=== PATIENT | female | born 1995 | race Caucasian/White ===

== ENCOUNTER 2018-09-02 09:29 | Outpatient (REF) | payer OTHER, SELFPAY ==
--- NOTE | 2018-09-02 08:30 | PAPFT_PTH ---
PATIENT: China Mahmood LOC: [facility] U#:[id number] AGE/SX: 22/F ROOM: RE09/02/[address]: FEI Solano : 1995 BED: DIS: 09/02/2018 SPEC #: [id number] RECD: 09/02/18 13:04 STATUS: ARAVIND REBrandon #: [id number] TOBY: 09/02/18 08:[address]: Glendy Painter DEPT: [facility] Cytology RECD BY: Etelvina Renee ENTERED: 09/02/18 13:04 SP TYPE: PAPFT OTHR DR: Joy Phan APRN Tissues: 1 - CX/ENDOCX FOR PAP SMEARS Procedures: PAP THIN PREP/[facility] Screening Comments: [id number]
[2018-09-05 13:38] LABS: Chlamydia Result Negative; GC Result Negative; Specimen Description CERVIX
== END 2018-09-02 09:49 ==
LOC: LBN 09:29
PROVIDERS: Visit Provider Nurse Practitioner Family
DX: Z11.3 Encounter for screening for infections with a predominantly sexual mode of transmission (principal); Z12.4 Encounter for screening for malignant neoplasm of cervix
CPT/HCPCS: 87491; 87591; 88142

== ENCOUNTER 2019-09-21 10:19 | Outpatient (REF) | payer OTHER, SELFPAY ==
--- NOTE | 2019-09-21 10:00 | PAPFT_PTH ---
PATIENT: China Mahmood LOC: N U#:[id number] AGE/SX: 23/F ROOM: RE09/21/[address]: FEI Solano : 1995 BED: DIS: 09/21/2019 SPEC #: [id number] RECD: 09/21/19 13:12 STATUS: ARAVIND REQ #: [id number] TOBY: 09/21/19 10:[address]: Glendy Painter DEPT: [facility] Cytology RECD BY: Etelvina Renee ENTERED: 09/21/19 13:12 SP TYPE: PAPFT OTHR DR: Joy Phan APRN Tissues: 1 - CX/ENDOCX FOR PAP SMEARS Procedures: PAP THIN PREP/[facility] Screening Comments: [id number]
[2019-09-22 14:20] LABS: Chlamydia Result Negative (Negative); GC Result Negative (Negative)
== END 2019-09-21 10:39 ==
LOC: LBN 10:19
PROVIDERS: Visit Provider Nurse Practitioner Family
DX: Z11.3 Encounter for screening for infections with a predominantly sexual mode of transmission (principal); Z12.4 Encounter for screening for malignant neoplasm of cervix
CPT/HCPCS: 87491; 87591; 88142

== ENCOUNTER 2019-11-28 12:27 | Outpatient (REF) | payer OTHER, SELFPAY ==
--- NOTE | 2019-11-28 11:35 | PAPFT_PTH ---
PATIENT: China Mahmood LOC: [facility] U#:[id number] AGE/SX: 23/F ROOM: RE11/28/[address]: Leandro Edgar MD : 1995 BED: DIS: 11/28/2019 SPEC #: [id number] RECD: 11/28/19 13:07 STATUS: ARAVIND REBrandon #: [id number] TOBY: 11/28/19 11:[address]: Leandro Edgar DEPT: [facility] Cytology RECD BY: Etelvina Renee ENTERED: 11/28/19 13:07 SP TYPE: PAPFT OTHR DR: Joy Phan APRN Tissues: 1 - CX/ENDOCX FOR PAP SMEARS Procedures: PAP THIN PREP/[facility] Screening Comments: [id number]
== END 2019-11-28 12:47 ==
LOC: LBN 12:27
PROVIDERS: Visit Provider Obstetrics & Gynecology
DX: R10.9 Unspecified abdominal pain (principal); L29.2 Pruritus vulvae; Z12.4 Encounter for screening for malignant neoplasm of cervix; R87.612 Low grade squamous intraepithelial lesion on cytologic smear of cervix (LGSIL)
CPT/HCPCS: 88142; 87086; 87480; 87510; 87660

== ENCOUNTER 2019-12-08 12:54 | Outpatient (REF) | payer OTHER, SELFPAY ==
--- NOTE | 2019-12-08 11:40 | CER_PTH ---
PATIENT: China Mahmood LOC: [facility] U#:[id number] AGE/SX: 24/F ROOM: RE12/08/[address]: Leandro Edgar MD : 1995 BED: DIS: 12/08/2019 SPEC #: [id number] RECD: 12/08/19 13:08 STATUS: ARAVIND REBrandon #: [id number] TOBY: 12/08/19 11:[address]: Leandro Edgar DEPT: Surgical Specimen RECD BY: Etelvina Renee ENTERED: 12/08/19 13:10 SP TYPE: CER OTHR DR: Joy Phan APRN Tissues: 1 - CERVICAL BIOPSY 2 - CERVICAL BIOPSY 3 - ENDOCERVICAL BX/CURRETTE Procedures: GROSS AND MICRO LEVEL 4 Comments: [id number] (SPEC #3 - TISSUE DID NOT SURVIVE PROCESSING)
== END 2019-12-08 13:14 ==
LOC: LBN 12:54
PROVIDERS: Visit Provider Obstetrics & Gynecology
DX: N87.0 Mild cervical dysplasia (principal); N72 Inflammatory disease of cervix uteri; Z87.42 Personal history of other diseases of the female genital tract
CPT/HCPCS: 88305

== ENCOUNTER 2020-09-06 02:11 | Outpatient (CLI) | payer OTHER, SELFPAY ==
[2020-09-07 17:06] LABS: COVID-19 RT-PCR Result NEGATIVE (Negative)
== END 2020-09-06 02:31 ==
PROVIDERS: Visit Provider Obstetrics & Gynecology
DX: Z11.59 Encounter for screening for other viral diseases (principal)
CPT/HCPCS: U0003

== ENCOUNTER 2020-12-20 18:22 | Outpatient (REF) | payer OTHER, SELFPAY ==
[2020-12-23 15:50] LABS: Chlamydia Result Negative (Negative); GC Result Negative (Negative)
== END 2020-12-20 18:23 | disposition home or self-care (01) ==
LOC: LBN 18:22
PROVIDERS: Visit Provider Nurse Practitioner Family
DX: Z11.3 Encounter for screening for infections with a predominantly sexual mode of transmission (principal)
CPT/HCPCS: 87491; 87591

== ENCOUNTER 2020-12-23 09:49 | Outpatient (CLI) | payer OTHER, SELFPAY ==
[2020-12-24 14:30] LABS: COVID-19 RT-PCR UVMMC Result Positive (Negative)
== END 2020-12-23 09:50 | disposition home or self-care (01) ==
DX: Z20.822 Contact with and (suspected) exposure to COVID-19 (principal)
CPT/HCPCS: U0003

== ENCOUNTER 2021-02-24 11:34 | Outpatient (REF) | payer OTHER, SELFPAY ==
--- NOTE | 2021-02-24 11:00 | PAPFT_PTH ---
PATIENT: China Mahmood LOC: [facility] U#:[id number] AGE/SX: 25/F ROOM: RE02/24/[address]: FEI Solano : 1995 BED: DIS: 02/24/2021 SPEC #: [id number] RECD: 02/24/21 14:11 STATUS: ARAVIND REBrandon #: [id number] TOBY: 02/24/21 11:[address]: Glendy Painter DEPT: [facility] Cytology RECD BY: Liza Gould ENTERED: 02/24/21 14:12 SP TYPE: PAPFT OTHR DR: Joy Phan APRN Tissues: 1 - CX/ENDOCX FOR PAP SMEARS Procedures: PAP THIN PREP/[facility] Screening Comments: [id number]
== END 2021-02-24 11:35 | disposition home or self-care (01) ==
LOC: LBN 11:34
PROVIDERS: Visit Provider Nurse Practitioner Family
DX: Z12.4 Encounter for screening for malignant neoplasm of cervix (principal); Z87.410 Personal history of cervical dysplasia
CPT/HCPCS: 88142

== ENCOUNTER 2021-05-26 16:35 | Outpatient (REF) | payer OTHER, SELFPAY ==
[2021-05-28 14:50] LABS: Chlamydia Result Negative (Negative); GC Result Negative (Negative)
== END 2021-05-26 16:36 | disposition home or self-care (01) ==
LOC: LBN 16:35
PROVIDERS: Visit Provider Obstetrics & Gynecology
DX: Z11.3 Encounter for screening for infections with a predominantly sexual mode of transmission (principal)
CPT/HCPCS: 87491; 87591; 87480; 87510; 87660

== ENCOUNTER 2022-03-09 09:13 | Outpatient (REF) | payer OTHER, SELFPAY ==
--- NOTE | 2022-03-09 08:30 | PAPFT_PTH ---
PATIENT: China Mahmood LOC: [facility] U#:[id number] AGE/SX: 26/F ROOM: RE03/09/[address]: FEI Solano : 1995 BED: DIS: 03/09/2022 SPEC #: [id number] RECD: 03/09/22 12:50 STATUS: ARAVIND REBrandon #: [id number] TOBY: 03/09/22 08:[address]: Glendy Painter DEPT: [facility] Cytology RECD BY: Etelvina Renee ENTERED: 03/09/22 12:50 SP TYPE: PAPFT SONY DR: Joy Phan APRN Tissues: 1 - CX/ENDOCX FOR PAP SMEARS Procedures: PAP THIN PREP/[facility] Screening Comments: [id number]
[2022-03-10 14:45] LABS: Chlamydia Result Negative (Negative); GC Result Negative (Negative)
== END 2022-03-09 09:14 | disposition home or self-care (01) ==
LOC: LBN 09:13
PROVIDERS: Visit Provider Nurse Practitioner Family
DX: Z11.3 Encounter for screening for infections with a predominantly sexual mode of transmission (principal); Z12.4 Encounter for screening for malignant neoplasm of cervix
CPT/HCPCS: 87491; 87591; 88142

== ENCOUNTER 2023-03-15 10:40 | Outpatient (REF) | payer OTHER, SELFPAY ==
--- NOTE | 2023-03-15 09:45 | PAPFT_PTH ---
PATIENT: China Mahmood LOC: [facility] U#:[id number] AGE/SX: 27/F ROOM: RE03/15/[address]: Kylah Mukherjee NP : 1995 BED: DIS: 03/15/2023 SPEC #: [id number] RECD: 03/15/23 13:07 STATUS: ARAVIND STONE #: [id number] TOBY: 03/15/23 09:[address]: Kylah Mukherjee NP DEPT: [facility] Cytology RECD BY: Etelvina Renee ENTERED: 03/15/23 13:07 SP TYPE: PAPFT OTHR DR: Laurie Tenorio NP Tissues: 1 - CX/ENDOCX FOR PAP SMEARS Procedures: PAP THIN PREP/[facility] Screening HPV DNA PROBE Comments: [id number] (CHLAMYDIA/GC)
[2023-03-16 14:19] LABS: Chlamydia Result Negative (Negative); GC Result Negative (Negative)
== END 2023-03-15 10:41 | disposition home or self-care (01) ==
LOC: LBN 10:40
PROVIDERS: PCP Nurse Practitioner Family; Visit Provider Nurse Practitioner Women's Health
DX: Z11.3 Encounter for screening for infections with a predominantly sexual mode of transmission (principal); Z12.4 Encounter for screening for malignant neoplasm of cervix; R87.610 Atypical squamous cells of undetermined significance on cytologic smear of cervix (ASC-US); Z11.51 Encounter for screening for human papillomavirus (HPV); Z87.410 Personal history of cervical dysplasia
CPT/HCPCS: 87491; 87591; 88142; 87624

== ENCOUNTER 2024-03-21 13:29 | Outpatient (REF) | payer OTHER, SELFPAY ==
--- NOTE | 2024-03-21 12:00 | PAPFT_PTH ---
PATIENT: China Mahmood LOC: [facility] U#:[id number] AGE/SX: 28/F ROOM: RE03/21/[address]: Suma Holley MD : 1995 BED: DIS: 03/21/2024 SPEC #: [id number] RECD: 03/21/24 13:46 STATUS: ARAVIND REBrandon #: [id number] TOBY: 03/21/24 12:[address]: Suma Holley DEPT: [facility] Cytology RECD BY: Etelvina Renee ENTERED: 03/21/24 13:47 SP TYPE: PAPFT OTHR DR: Laurie Tenorio, ORDERLIES TEACHER Tissues: 1 - CX/ENDOCX FOR PAP SMEARS Procedures: PAP THIN PREP/[facility] Screening HPV DNA PROBE Comments: [id number] (CHLAMYDIA/GC)
[2024-03-22 12:26] LABS: Chlamydia Result Negative (Negative); GC Result Negative (Negative)
== END 2024-03-21 13:30 | disposition home or self-care (01) ==
LOC: LBN 13:29
PROVIDERS: PCP Nurse Practitioner Family; Visit Provider Obstetrics & Gynecology
DX: Z11.3 Encounter for screening for infections with a predominantly sexual mode of transmission (principal); Z12.4 Encounter for screening for malignant neoplasm of cervix; Z11.51 Encounter for screening for human papillomavirus (HPV); Z87.410 Personal history of cervical dysplasia
CPT/HCPCS: 87491; 87591; 88142; 87624

== ENCOUNTER 2024-08-09 08:31 | Outpatient (REF) | payer OTHER, SELFPAY ==
--- NOTE | 2024-08-09 07:38 | SKI_PTH ---
PATIENT: China Mahmood LOC: [facility] U#:[id number] AGE/SX: 28/F ROOM: RE08/09/[address]: Gianfranco Irwin MD : 1995 BED: DIS: 08/09/2024 SPEC #: [id number] RECD: 08/09/24 12:28 STATUS: ARAVIND REBrandon #: [id number] TOBY: 08/09/24 07:[address]: Gianfranco Irwin DEPT: Surgical Specimen RECD BY: Etelvina Renee ENTERED: 08/09/24 12:30 SP TYPE: NICOLLE CARDOZA DR: Laurie Tenorio, MABEL Tissues: 1 - SKIN BIOPSY(SHAVE/PUNCH) Procedures: SKIN LEVEL 4 Comments: [id number]
== END 2024-08-09 08:32 | disposition home or self-care (01) ==
LOC: LBN 08:31
PROVIDERS: PCP Nurse Practitioner Family; Visit Provider Otolaryngology
DX: L98.9 Disorder of the skin and subcutaneous tissue, unspecified (principal)
CPT/HCPCS: 88305

== ENCOUNTER 2024-12-12 08:25 | Outpatient (CLI) | payer OTHER, SELFPAY ==
[2024-12-12 12:17] LABS: HCT 40.7 % (36.0-46.0); HGB 13.2 g/dL (11.2-15.7); MCH 29.2 pg (27.0-33.0); MCHC 32.4 % (32.0-36.0); MCV 90 fL (80-95); Platelet Count 335 10^3/uL (130-400); RBC 4.52 10^6/uL (3.93-5.22); RDW 12.5 % (11.7-14.6); RDW-SD 41.4 fL; WBC 9.97 10^3/uL (4.4-10.8)
[2024-12-12 13:02] LABS: ALT 21 U/L (14-59); AST 19 U/L (15-37); Albumin 3.5 g/dL (3.4-5.0); Alkaline Phosphatase 49 U/L (46-116); Anion Gap 8.9 mmol/L (3-11); BUN 15 mg/dL (7-18); Bilirubin, Total 0.5 mg/dL (0.2-1.0); CO2 28.1 mmol/L (21.0-32.0); CREATININE 0.9 mg/dL (0.55-1.02); Calcium 9.8 mg/dL (8.5-10.1); Calculated LDL 134 mg/dL (<100); Chloride 105 mmol/L (98-107); Cholesterol 241 mg/dL (<200); Glucose 99 mg/dL (74-106); HDL Cholesterol 92 mg/dL (>or=50); Potassium 3.9 mmol/L (3.5-5.1); Sodium 142 mmol/L (136-145); Total Protein 7.4 g/dL (6.4-8.2); Triglyceride 77 mg/dL (<150)
== END 2024-12-12 08:26 | disposition home or self-care (01) ==
LOC: LOS 08:26
PROVIDERS: PCP Nurse Practitioner Family; Referring Provider Nurse Practitioner Family; Visit Provider Nurse Practitioner Family
DX: Z00.00 Encounter for general adult medical examination without abnormal findings (principal); F41.9 Anxiety disorder, unspecified; F32.9 Major depressive disorder, single episode, unspecified
CPT/HCPCS: 36415; 80053; 80061; 85027

== ENCOUNTER 2025-03-27 11:55 | Outpatient (REF) | payer OTHER, SELFPAY ==
--- NOTE | 2025-03-27 11:55 | PAPFT_PTH ---
PATIENT: China Mahmood LOC: [facility] U#:[id number] AGE/SX: 29/F ROOM: RE03/27/[address]: Suma Holley MD : 1995 BED: DIS: 03/27/2025 SPEC #: [id number] RECD: 03/27/25 12:49 STATUS: ARAVIND REBrandon #: [id number] TOBY: 03/27/25 11:[address]: Suma Holley DEPT: [facility] Cytology RECD BY: Etelvina Renee ENTERED: 03/27/25 12:49 SP TYPE: PAPFT OTHR DR: Laurie Tenorio, CONTACT CENTER DIRECTOR Tissues: 1 - CX/ENDOCX FOR PAP SMEARS Procedures: PAP THIN PREP/[facility] Screening HPV DNA PROBE Comments: [id number] (HPV 16 & 18/45) (CHLAMYDIA/GC)
[2025-03-28 12:25] LABS: Chlamydia Result Negative (Negative); GC Result Negative (Negative)
== END 2025-03-27 11:56 | disposition home or self-care (01) ==
LOC: LBN 11:55
PROVIDERS: PCP Nurse Practitioner Family; Visit Provider Obstetrics & Gynecology
DX: Z12.4 Encounter for screening for malignant neoplasm of cervix (principal)
CPT/HCPCS: 87491; 87591; 88142; 87624

== ENCOUNTER 2025-05-05 16:44 | Emergency (ER) | payer OTHER, SELFPAY ==
[2025-05-05 16:45] VITALS: BP 129/73; PULSE 107; RESP 18; TEMP 36.6; O2SAT 98
[2025-05-05 16:49] VITALS: BP 129/73; PULSE 107; RESP 18; TEMP 36.6; O2SAT 98
[2025-05-05 17:00] LABS: Glucose Negative (Negative)
[2025-05-05 17:10] LABS: C & S Indicated? Yes; RBC 0-2 HPF (0-2)
[2025-05-05] MEDS: MacroBID 100 MG CAP, 2 CAPS/BTL PO (17:23)
--- NOTE | 2025-05-05 17:25 | ED.GENADUL_ITS ---
Discharge Plan Disposition Patient Disposition: Home Discharge Details Clinical Impression: UTI (urinary tract infection) Primary Care Provider: Laurie Tenorio ED Provider: Rolanda Wilson Home Meds and New Rx's Prescriptions: New nitrofurantoin monohyd/m-cryst [Macrobid] 100 mg capsule 100 mg PO Q12H 4 Days Qty: 8 0RF Rx Instructions: must administer with a meal/food No Action multivitamin [Daily Multi-Vitamin] Tablet 1 tab PO DAILY etonogestrel-ethinyl estradiol [NuvaRing] 0.12-0.015 mg/24 hr ring 1 vag ring vaginal q month Qty: 9 4RF citalopram 10 mg tablet 10 mg PO DAILY Qty: 90 3RF triamcinolone acetonide 0.1 % cream 1 applic topical BID PRN Rx Instructions: Apply to affected area twice daily ibuprofen 200 mg tablet 200 mg PO Q6H PRN Discharge Instructions Instructions: Urinary Tract Infection, Adult ED Additional Instructions: Please call your primary care provider if you are not feeling significantly better by Wednesday. You are being prescribed antibiotic called nitrofurantoin/Macrobid to treat UTI. Please take the full course as prescribed. A urine culture is being performed, we will let you know if any changes to treatment need to be made. Stay well-hydrated, drinking plenty of fluids throughout the day. Return to emergency care if you develop new fevers, abdominal pains, inability to urinate, nausea/vomiting, or if you are very worried and need to be rechecked again immediately. Referrals: Laurie Tenorio NP [Primary Care Provider, Medicine] Discharge Data Discharge Date/Time-TO BE ENTERED AT DEPARTURE: 05/05/25 17:24 HPI General Date/Time Provider Initiated Documentation: 05/05/25 17:07 . HPI Narrative: China is a 29-year-old female who presents to the ED for evaluation of urinary complaints, suspects UTI. Reports a few days of tingling during urination, progressing to pain with urination. Also reports suprapubic pressure and increased urinary frequency/urgency. She does have some mild itching, but says that this is not accompanied by any unusual discharge. No blood in urine, but did notice some redness on toilet paper. Denies associated fever/chills, nausea/vomiting, change in bowel movements, other abdominal pain, lower back pain. No known trauma, recent antibiotic use, or allergies. No significant gynecologic history, history of STDs, or new sexual partners. Have regular menstrual cycles, uses NuvaRing. PCP at [facility]. Related Data Home Medications ?Medication ?Instructions ?Recorded ?Confirmed multivitamin (Daily Multi-Vitamin 1 tab PO DAILY 11/2805/05/25 tablet) ibuprofen 200 mg tablet 200 mg PO Q6H PRN 11/03/23 0 05/05/25 triamcinolone acetonide 0.1 % 1 applic topical BID PRN 05/03/24 05/05/25 topical cream citalopram 10 mg tablet 10 mg PO DAILY #90 tabs 06/0405/05/25 etonogestrel 0.12 mg-ethinyl 1 vag ring vaginal q neyda h #9 ea 03/27/25 05/05/25 estradiol 0.015 mg/24 hr vaginal ring (NuvaRing) nitrofurantoin 100 mg PO Q12H 4 days #8 cap s 05/05/25 monohydrate/macrocrystals 100 mg capsule (Macrobid) Previous Rx's ?Medication ?Instructions ?Recorded citalopram 10 mg tablet 10 mg PO DAILY #90 tabs 06/04 etonogestrel 0.12 mg-ethinyl 1 vag ring vaginal q neyda h #9 ea 03/27/25 estradiol 0.015 mg/24 hr vaginal ring (NuvaRing) nitrofurantoin 100 mg PO Q12H 4 days #8 cap s 05/05/25 monohydrate/macrocrystals 100 mg capsule (Macrobid) Allergies Allergy/AdvReac Type Severity Reaction Status Date / Time No Known Allergies Allergy Verified 05/05/25 16:48 General Stated Complaint: Urinary ERIC: 3 Exam Narrative Exam Narrative: General Appearance: Alert, oriented, well-appearing. Vital signs: Within normal limits. HEENT: Moist mucous membranes. Gastrointestinal: Soft, nondistended, nontender abdomen. No CVA tenderness. Skin: Warm and dry, no rash. Psychiatric: Normal. Course Vital Signs Vital signs: Vital Signs Temperature 36.6 C 05/05/25 16:45 Pulse 107 H 05/05/25 16:45 Respiratory Rate 18 05/05/25 16:45 Blood Pressure 129/73 05/05/25 16:45 Pulse Oximetry 98 05/05/25 16:45 Temperature 36.6 C 05/05/25 16:49 Pulse 107 H 05/05/25 16:49 Respiratory Rate 18 05/05/25 16:49 Blood Pressure 129/73 05/05/25 16:49 Blood Pressure Position Sitting 05/05/25 16:49 Pulse Oximetry 98 05/05/25 16:49 Pain Level 1 05/05/25 16:54 Lab/Test Results Lab/Test Results: 05/05/25 16:48 Urine - Reflex from Ua Urine Culture - Pending Laboratory Tests Range/Units 05/05/25 16:48 Urine Color (Yellow) Yellow Urine Clarity (Clear) Clear Urine pH (5-8) 6.5 Ur Specific [place] (1.005-1.025) 1.010 Urine Protein (Neg-Trace) mg/dL Negative Urine Ketones (Negative) mg/dL Negative Urine Blood (Negative) Small H Urine Nitrite (Negative) Negative Urine Bilirubin (Negative) Negative Urine Urobilinogen (Up to 0.2) mg/dL 0.2 Ur Leukocyte Esterase (Negative) Trace H Urine RBC (0-2) HPF 0-2 Urine WBC (0-5) HPF 10-20 H Ur Epithelial Cells (Negative) HPF Rare Urine Crystals (Negative) HPF Negative Urine Bacteria (Negative) HPF Few Urine Casts (Negative) LPF Negative Urine Mucus (Negative) Negative Ur Culture Indicated? Yes Urine Glucose (Negative) mg/dL Negative POC- Test(urine) Negative Medical Decision Making Initial Assessment: 29-year-old female presenting with dysuria, pressure, increased frequency, and mild itching. Suspected UTI. History and presentation consistent with UTI. No red flags concerning for pyelonephritis, serious extension of infection, or obstruction. I independently interpreted the following tests: -UA consistent with UTI, with 10-20 white blood cells and positive leuks - test negative. Final Assessment: Well-appearing patient with UTI. First dose of Macrobid administered. Prescription sent to pharmacy. Clinical Impression: - UTI Disposition: - Discharge: Home. Reviewed discharge instructions with patient, acutely and use of antibiotics, symptomatic management, and red flags indicate need for return to emergency care. Monitor for new symptoms (fever, abdominal pain, backache, nausea, vomiting, inability to urinate). Return to ED if symptoms arise. Follow-Up: Follow up with primary care provider if symptoms persist or worsen by Wednesday. Patient Education: Advised to wear breathable underwear, practice good hygiene, and stay hydrated. Monitor for signs of yeast infection. Patient consented to the use of [facility] PFSH All Active Problems (Updated 05/05/25 @ 17:18 by Rolanda Angulo) UTI (urinary tract infection) (Acute) Skin lesions, generalized (Acute) right fore head in hair line. Had it for as long as she can remember. Skin nodule of toe of right foot (Acute) Plantar surface 3rd toe, right foot Depression (Chronic) 2018 - Recently - therapist in [place] Lumbar spine scoliosis (Acute) Anxiety (Acute 05/31/18) Acne vulgaris (Acute 08/18/17) Medical History (Updated 05/05/25 @ 17:18 by Rolanda Angulo) History of abnormal cervical Pap smear Memory changes (05/31/18) Family history of colitis (09/13/15) Surgical History Tooth extraction Family History Mother Personal history of malignant neoplasm CERVICAL Father No problems noted. Maternal Grandmother , AGE 50 Cervical cancer Paternal Grandfather Alcohol abuse Asthma Depression Cancer Social History Smoking/Tobacco Use Status: Never Smoking risk assessment performed?: Yes Alcohol Intake: current Alcohol Intake frequency: holidays/special occasions only Alcohol type: hard liquor Drug use: Never Substance use type: does not use Household members: other Details: 3 Housing: house Duration: 15-30 minutes/day Frequency: 1-2 times per week Katherine/Moravian: No preference Special katherine needs: No Do you feel safe at home: Yes Do you feel safe in your relationship?: Yes Female Reproductive History Menstrual control method: vaginal ring History History 0 Para Hx # Term Pregnancies Multiple births Hx # Pregnancies Ectopic pregnancies AB induced Hx Number of Living Children AB spontaneous
--- NOTE | 2025-05-06 15:41 | NUR.NOTE ---
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 Given one dose of nitrofurantoin to go. Patient will fruit picker rest of prescription from pharmacy tomorrow.
== END 2025-05-05 17:24 | disposition home or self-care (01) ==
PROVIDERS: Emergency Medicine; Emergency Provider Nurse Practitioner Family; PCP Nurse Practitioner Family
DX: N39.0 Urinary tract infection, site not specified (principal); R30.0 Dysuria; R35.0 Frequency of micturition; R39.15 Urgency of urination
CPT/HCPCS: 99283 ×2; 81025; 87077; 81003; 81015; 87086; 87186

== ENCOUNTER 2025-05-15 18:56 | Outpatient (REF) | payer OTHER, SELFPAY ==
[2025-05-15 19:54] LABS: Glucose Negative (Negative)
[2025-05-15 20:01] LABS: RBC 0-2 HPF (0-2); WBC 0-2 HPF (0-5)
[2025-05-15 20:02] LABS: C & S Indicated? No
== END 2025-05-15 18:57 | disposition home or self-care (01) ==
LOC: LBN 18:56
PROVIDERS: PCP Nurse Practitioner Family; Visit Provider Nurse Practitioner Family
DX: R30.0 Dysuria (principal)
CPT/HCPCS: 81003; 81015